=== PATIENT | male | born 1965 | race Caucasian/White ===

== ENCOUNTER 2022-03-25 16:53 | Emergency (ER) | payer OTHER, SELFPAY ==
[2022-03-25 16:59] VITALS: BP 159/92; PULSE 87; RESP 18; TEMP 36.6; O2SAT 96; BMI 23.8
--- NOTE | 2022-03-25 17:20 | ED_ITS ---
HPI - General Adult General Chief complaint: Laceration/Wound Stated complaint: Arm Time Seen by Provider: 03/25/22 16:58 Source: patient Mode of arrival: ambulatory Limitations: no limitations History of Present Illness HPI narrative: Fabiana 56-year-old male coming in today with a laceration to the right arm. States that he was pulling up ceramic tile when a piece flew right into his arm. Denies any other injury. Tetanus shot was last updated in 2011. Related Data Previous Rx's Medication Instructions Recorded amoxicillin 875 mg-potassium 1 tab PO BID 7 days #14 tabs 03/25/22 clavulanate 125 mg tablet Allergies Allergy/AdvReac Type Severity Reaction Status Date / Time No Known Drug Allergies Allergy Verified 03/25/22 16:58 Review of Systems Narrative: Denies other injuries. [facility] Social History Smoking Status: Never smoker Do you use any of these nicotine containing products: None Second hand tobacco smoke exposure: No How often do you have a drink containing alcohol: never How often do you have six or more drinks on one occasion: Never AUDIT-C Alcohol total score: 0 Non-prescribed substance use: denies use service: No Exam Narrative: Exam Narrative: Well-nourished well-developed patient in no acute distress. Alert and oriented. Answers questions appropriately. Mood and affect are appropriate. Thoughts are goal oriented and rational. No tangential or magical thinking noted. Patient speaks in full sentences without needing to catch their breath. HEENT: Normocephalic atraumatic. Pupils are equally round reactive to light. Extraocular muscles are intact. Conjunctivae are moist without any icterus noted. Extremities: Bilateral lower extremities are without edema. Patient has a laceration to the anterior right forearm that is just over an inch in length. The laceration goes through the epidermis and through the subcutaneous tissue. Muscle is visible. He has full range of motion at the wrist and all fingers. There seems to be no deficits whatsoever. Normal radial pulse. Skin: Well perfused without any obvious rashes. Const: Vital Signs, click to edit/add: Vital Signs - 24 hr 03/25/22 16:59 Temperature 97.8 F Pulse Rate [Pulse Oximeter] 87 Respiratory Rate 18 Blood Pressure [Le ft Upper Arm] 159/92 H Pulse Oximetry 96 Oxygen Delivery Me thod Room Air Course Course Hospital Course: Wound was anesthetized with lidocaine with epinephrine. Wound was irrigated with normal saline and cleaned with wound cleanser. Two sutures with 4-0 Vicryl were placed in the subcutaneous space to bring that space together. Six sutures with 3-0 Ethilon were done to bring the skin together. Patient tolerated the procedure well. Vital Signs Vital signs: Initial Vital Signs Temperature 97.8 F 03/25/22 16:59 Temperature Source Temporal Artery Scan 03/25/22 16:59 Pulse Rate 87 03/25/22 16:59 Pulse Rhythm 03/25/22 16:59 Respiratory Rate 18 03/25/22 16:59 Blood Pressure 159/92 H 03/25/22 16:59 Blood Pressure Mean 114 03/25/22 16:59 Blood Pressure Position Supine 03/25/22 16:59 Pulse Oximetry 96 03/25/22 16:59 Oxygen Delivery Method 03/25/22 16:59 Vital Signs Temperature 97.8 F 03/25/22 16:59 Pulse Rate 87 03/25/22 16:59 Respiratory Rate 18 03/25/22 16:59 Blood Pressure 159/92 H 03/25/22 16:59 Pulse Oximetry 96 03/25/22 16:59 Oxygen Delivery Method 03/25/22 16:59 Temperature 97.8 F 03/25/22 16:59 Pulse Rate 87 03/25/22 16:59 Respiratory Rate 18 03/25/22 16:59 Blood Pressure 159/92 H 03/25/22 16:59 Pulse Oximetry 96 03/25/22 16:59 Oxygen Delivery Method 03/25/22 16:59 Medical Decision Making MDM Narrative Medical decision making narrative: 56-year-old male status post laceration sutured in the ED today. We discussed wound hygiene, signs and symptoms of infection, reasons to return to the ER, suture removal in 7-10 days. Patient was agreeable had no other questions. Tetanus shot was updated today as well. Given the depth of the laceration we did opt to start him on antibiotics today. Patient will be sent home with Angela kumari. Discharge Plan Discharge Clinical Impression: Laceration Patient Disposition: Home, Self-Care Condition: Improved Additional Instructions: Keep wound clean and dry. Okay to shower like he normally would but do not soak such as swimming or taking baths. Watch for signs of infection which include erythema or draining of pus from the incision. Take all your antibiotics as prescribed to hopefully prevent this from happening. Suture removal in 7-10 days with your primary care provider. Prescriptions: New amoxicillin-pot clavulanate 875-125 mg tablet 1 tab PO BID 7 Days Qty: 14 0RF Stand Alone Forms: MyHealth Info Instructions
[2022-03-25] MEDS: TETANUS/DIPHTH/PERTUSSIS 0.5 ML SYRINGE IM (17:43)
== END 2022-03-25 18:00 | disposition home or self-care (01) ==
PROVIDERS: Emergency Provider Family Medicine
DX: S51.811A Laceration without foreign body of right forearm, initial encounter (principal); W26.9XXA Contact with unspecified sharp object(s), initial encounter
CPT/HCPCS: 12001; 90471; 90715; 99283